=== PATIENT | female | born 1965 | race Caucasian/White ===

== ENCOUNTER 2016-07-18 20:07 | Emergency (ER) | payer BC ==
[2016-07-18 20:18] VITALS: BP 108/81
--- NOTE | 2016-07-18 21:19 | UC ---
Respiratory Complaint HPI - HPI Summary HPI Summary: The patient comes in today for: 1. Sinus pressure and nasal congestion and cough x 2 weeks: Onset: 2 weeks ago. Palliative/provocative: Nothing makes her symptoms better or worse. Quality: Pressure. Region: Bilateral maxillary. Severity: 7/10 Time: Comes and goes. Associated symptoms: Cough: Greening Rhinitis: Clear Chest pain: None. Dyspnea: Present in the last 1-2 days. Wheezing: None. Inhaler: None. Fever: None. * - History of Current Complaint Chief Complaint: UCGeneralIllness Stated Complaint: SINUSES Time Seen by Provider: 07/18/16 21:13 Hx Obtained From: Patient Hx Last Menstrual Period: 03/14/13 ?: No - Allergies/Home Medications Allergies/Adverse Reactions: Allergies Allergy/AdvReac Type Severity Reaction Status Date / Time No Known Allergies Allergy Verified 07/18/16 20:17 Home Medications: Home Medications Phenylephrine W/ Acetaminophen [Tylenol Sinus Congestion 5-325 mg] 1 tab PO ONCE PRN 07/18/16 [History Confirmed 07/18/16] PMH/Surg Hx/FS Hx/Imm Hx Previously Healthy: Yes Endocrine History Of: Reports: Diabetes - She states people have told her she is "prediabetic." Denies: Thyroid Disease, Hyperthyroidism, Hypothyroidism, Dyslipidemia Cardiovascular History Of: Denies: Cardiac Disorders, Hypertension, Pacemaker/ICD, Myocardial Infarction , Congestive Heart Failure, Atrial Fibrillation, Deep Vein Thrombosis, Bleeding Disorders Respiratory History Of: Denies: COPD, Asthma, Bronchitis, Pneumonia, Pulmonary Embolism GI/ History Of: Denies: Gastroesophageal Reflux, Ulcer, Gastrointestinal Bleed, Gall Bladder Disease, Kidney Stones, Diverticulitis, Renal Disease, Urosepsis Neurological History Of: Denies: TIA, CVA, Dementia, Seizures, Migraine Psychological History Of: Denies: Anxiety, Depression, Bipolar Disorder, Schizophrenia, Post Traumatic Stress Disorder Cancer History Of: Denies: Lung Cancer, Colorectal Cancer, Breast Cancer, Prostate Cancer, Cervical Cancer Other History Of: Negative For: HIV, Hepatitis B, Hepatitis C, Anticoagulant Therapy - Surgical History Surgical History: Yes Surgery Procedure, Year, and Place: TUBAL - Family History Known Family History: Positive: Hypertension Negative: Cardiac Disease - Social History Occupation: Employed Full-time Alcohol Use: Weekly Substance Use Type: None Smoking Status (MU): Never Smoked Tobacco Review of Systems Constitutional: Negative Skin: Negative Eyes: Negative ENT: Negative Respiratory: Cough Cardiovascular: Negative Gastrointestinal: Negative Genitourinary: Negative All Other Systems Reviewed And Are Negative: Yes Physical Exam Triage Information Reviewed: Yes Appearance: Well-Appearing, No Pain Distress, Well-Nourished Vital Signs: Initial Vital Signs Temp 99 F 07/18/16 20:12 Pulse 97 07/18/16 20:12 Resp 14 07/18/16 20:12 BP 108/81 07/18/16 20:12 Pulse Ox 98 07/18/16 20:12 Vital Signs Reviewed: Yes Eyes: Positive: Conjunctiva Clear. Negative: Discharge ENT: Positive: Normal ENT inspection, Hearing grossly normal, Other: - Maxillary sinus tenderness to palpation.. Negative: Pharyngeal erythema, Nasal congestion, Nasal drainage, TM bulging, TM dull, TM red, Tonsillar swelling, Tonsillar exudate Dental: Negative: Gross Decay/Caries @, Dental Fracture @ Neck: Positive: Supple, Nontender, No Lymphadenopathy. Negative: Nuchal Rigidity Respiratory: Positive: Lungs clear, No respiratory distress, No accessory muscle use. Negative: Crackles, Wheezing Cardiovascular: Positive: RRR, No Murmur Abdomen Description: Positive: Nontender, No Organomegaly, Soft. Negative: Distended, Guarding Bowel Sounds: Positive: Present Musculoskeletal: Positive: Strength Intact, ROM Intact, No Edema Neurological: Positive: Alert, Muscle Tone Normal Psychological: Positive: Age Appropriate Behavior, Consolable Skin: Negative: rashes, breakdown UC Diagnostic Evaluation - Laboratory O2 Sat by Pulse Oximetry: 98 Respiratory Course/Dx - Differential Dx/Diagnosis Differential Diagnosis/HQI/PQRI: Bronchitis, Laryngitis, Sinusitis Provider Diagnoses: Sinusitis, bilateral Discharge - Discharge Plan Condition: Stable Disposition: HOME Patient Education Materials: Sinusitis (ED) Referrals: Elizabeth Montgomery MD [Primary Care Provider] - 1 Week (Please see your primary care provider in about a week to see how well you are doing. If you get worse, please be seen sooner.)
[2016-07-18] MEDS ORDERED: Amoxicillin/Clavulanate TAB* 875 MG PO ONE (21:24)
== END 2016-07-18 21:33 | disposition home or self-care (01) ==
LOC: UCCORT 20:07
DX: J32.9 Chronic sinusitis, unspecified (principal)
CPT/HCPCS: 99212; A9270-GY; G0463

== ENCOUNTER 2016-11-23 10:01 | Emergency (ER) | payer BC ==
[2016-11-23 10:26] VITALS: BP 125/74
--- NOTE | 2016-11-23 10:51 | UC ---
Upper Extremity HPI - HPI Summary HPI Summary: per help desk consultant "she hit her right elbow against a truck and she thinks she broke her elbow." This happened 2 hrs ago. hard to extend it all nic way. tender at medial extensor elbow. has some tingling into hand - History of Current Complaint Chief Complaint: UCUpperExtremity Stated Complaint: RIGHT ELBOW INJURY Time Seen by Provider: 11/23/16 10:30 Hx Last Menstrual Period: 03/14/13 - Allergies/Home Medications Allergies/Adverse Reactions: Allergies Allergy/AdvReac Type Severity Reaction Status Date / Time No Known Allergies Allergy Verified 11/23/16 10:27 Home Medications: Home Medications NK [No Home Medications Reported] 11/23/16 [History Confirmed 11/23/16] PMH/Surg Hx/FS Hx/Imm Hx Previously Healthy: Yes Other History Of: Negative For: HIV, Hepatitis B, Hepatitis C, Anticoagulant Therapy - Surgical History Surgical History: Yes Surgery Procedure, Year, and Place: TUBAL - Family History Known Family History: Positive: Hypertension Negative: Cardiac Disease - Social History Alcohol Use: Weekly Substance Use Type: None Smoking Status (MU): Never Smoked Tobacco Review of Systems Constitutional: Negative Skin: Negative Eyes: Negative ENT: Negative Respiratory: Negative Cardiovascular: Negative Gastrointestinal: Negative Genitourinary: Negative Motor: Negative Neurovascular: Negative Musculoskeletal: Arthralgia Neurological: Negative Psychological: Negative All Other Systems Reviewed And Are Negative: Yes Physical Exam Triage Information Reviewed: Yes Appearance: Well-Appearing, No Pain Distress, Well-Nourished Vital Signs: Initial Vital Signs Temp 97.4 F 11/23/16 10:20 Pulse 84 11/23/16 10:20 Resp 16 11/23/16 10:20 BP 125/74 11/23/16 10:20 Pulse Ox 98 11/23/16 10:20 Eye Exam: Normal ENT Exam: Normal Neck exam: Normal Respiratory: Positive: Lungs clear, Normal breath sounds, No respiratory distress, No accessory muscle use Cardiovascular Exam: Normal Cardiovascular: Positive: RRR, No Murmur, Pulses Normal, Brisk Capillary Refill Abdominal Exam: Normal Abdomen Description: Positive: Soft Musculoskeletal: Positive: Other: - Rt elbow with tenderness to medial extensor forearm. no bruising, no erythema. able to supinate and pronate. painful to extend. + 2 radial pulse, CR brisk. sensation intact. Neurological Exam: Normal Psychological Exam: Normal Skin Exam: Normal Upper Extremity Course/Dx - Course Course Of Treatment: rt elbow xray - small effusion. no frx. aligned. sling given. adv rpt xray 7-10 days so not to miss a frx - Differential Dx/Diagnosis Differential Diagnosis/HQI/PQRI: Contusion, Fracture (Closed), Nursemaid's Elbow , Strain, Sprain Provider Diagnoses: Rt elbow pain Discharge - Discharge Plan Condition: Stable Disposition: HOME Patient Education Materials: Swollen Joint (ED), Elbow Sprain (ED) Referrals: Elizabeth Montgomery MD [Primary Care Provider] - 3 Days Rasheed Early MD [Medical Doctor] - Additional Instructions: There is no fracture seen on the xray but there is small amount of fluid. It is recommended that this is re-xrayed in 7-10 days as we dsicussed. You can follow up with your PCP or call the orthopedist we have listed. Sling will help keep your arm rested. Ice 20mins on/off as much as possible with towel barrier. Tylenol or ibuprofen will help.
--- NOTE | 2016-11-23 11:12 | RAD ---
INDICATION: Right elbow injury. TECHNIQUE: 4 views of the right elbow were obtained. FINDINGS: The bones are in normal alignment. There is a small joint effusion present. No fracture is seen. IMPRESSION: JOINT EFFUSION, NO FRACTURE IS SEEN. RECOMMEND A FOLLOW-UP X-RAY STUDY OF THE ELBOW IN 7-10 DAYS TO EXCLUDE A RADIOGRAPHICALLY OCCULT FRACTURE.
== END 2016-11-23 11:43 | disposition home or self-care (01) ==
LOC: UCCORT 10:01
DX: M25.521 Pain in right elbow (principal); W22.8XXA Striking against or struck by other objects, initial encounter; Y93.9 Activity, unspecified; Y92.9 Unspecified place or not applicable; Y99.9 Unspecified external cause status; M25.421 Effusion, right elbow
CPT/HCPCS: 99212; G0463

== ENCOUNTER 2018-03-18 08:25 | Day surgery (SDC) | payer BC ==
[~2018-03-18 08:25] MED LIST: Acetaminophen TAB* 325 MG PO PRN; Buffered Lidocaine 0.9% SYRIN* 5 ML/SYR SYRINGE INTRADERM ONE; Bupivacaine 0.25% SDV* 30 ML ONE; Naloxone* 0.4 MG/ML 1 ML VIAL IV PRN; Ondansetron INJ* 2 MG/ML VIAL IV PRN; PROCHLORPERAZINE INJ 5 MG/ML 2 ML VIAL IV PRN; fentaNYL* 50 MCG/ML 2 ML VIAL (100 MCG VIAL) IV PRN
[2018-03-18] MEDS ORDERED: fentaNYL* 50 MCG/ML 2 ML VIAL (100 MCG VIAL) ONE (08:58)
[2018-03-18] MEDS ORDERED: Midazolam* 1 MG/ML 2 ML VIAL (2 MG) ONE (08:58)
[2018-03-18] MEDS ORDERED: ceFAZolin 2 GM PREMIX in ORs 2 GM/50 ML BAG IVPB ONE (08:58)
[2018-03-18] MEDS ORDERED: Lidocaine 2% PF * 5 ML VIAL ONE (10:21)
[2018-03-18] MEDS ORDERED: Propofol* 10 MG/ML 20 ML BTL IV PUSH ONE (10:21)
[2018-03-18] MEDS ORDERED: Ketorolac INJ* 30 MG/ML 1 ML VIAL ONE (10:21)
[2018-03-18 11:18] VITALS: BP 111/71
--- NOTE | 2018-03-18 21:05 | OP ---
DATE OF OPERATION: 03/18/18 - [facility] DATE OF : 69 SURGEON: Arnold Eduardo MD DIRECTOR OF TEENAGE ACTIVITIES: EDDI King ANESTHESIOLOGIST: Dr. Santana. ANESTHESIA: Local MAC. PRE-OP DIAGNOSES: 1. Left volar wrist mass. 2. Left carpal tunnel syndrome. POST-OP DIAGNOSES: 1. Left volar wrist mass. 2. Left carpal tunnel syndrome. OPERATIVE PROCEDURE: 1. Left open carpal tunnel release. 2. Excision of left volar wrist ganglion cyst. INDICATIONS: Keely has a mass right over the volar aspect of her wrist; it has been enlarging and waxes and wanes in size. She gets a lot of carpal tunnel symptoms with it. It is not surprising that the mass is directly overlying the median nerve. I talked to her about the risks and benefits of surgery and she wanted to proceed. ESTIMATED BLOOD LOSS: 2 mL. COMPLICATIONS: None. FINDINGS: See above and below. DESCRIPTION OF PROCEDURE: Keely was seen in the preoperative holding area. The correct site, side, and procedure were identified. We came back to the operating room where the arm was prepped and draped in the usual fashion. I performed a field block with 0.25% Marcaine. Again, the arm was prepped and draped in the usual fashion and a time-out was performed. The arm was exsanguinated with the Esmarch and the tourniquet was inflated to 250 mmHg. I made an incision involving her proximal palm crease longitudinally over the carpal tunnel. This was brought back directly over the mass and then across the wrist in a Rodrigo type fashion. Dissection was carried down and full -thickness flaps were raised right off the mass. It became very obvious that this was a ganglion. We were just seeing the tip of the ganglion, but there was a much larger ganglion deeper to this. I went ahead and first performed the carpal tunnel release by releasing the transverse carpal ligament just off the radial aspect of the hook of the hamate. This was completed distally and then proximally, this was brought across the wrist flexion crease to release the remainder of the transverse carpal ligament and distal antebrachial fascia. With the carpal tunnel release done, I went ahead and turned my attention to the cyst. I did it very carefully and went around the margins of the cyst with the tenotomy scissors and freed up the soft tissue about the cyst. This was taken down, it was penetrating the transverse carpal ligament and looked like it was headed back right towards the CMC joint. The mass was very delicately traced back to the CMC joint where it was amputated and the stock of the cyst was cauterized with the Bovie cautery. Great care was taken not to cauterize anywhere near the median nerve. Great care was taken to try to ensure the preservation of the motor branch in the median nerve. The cyst came out completely cleanly and without injury to any of these surrounding structures. Once I had the cyst excised and everything was looking good, I irrigated out the wound. Skin was closed with 4-0 nylon suture. Wound was dressed and a cock -up wrist splint was applied. Tourniquet was deflated and she was taken to the recovery room in stable condition. [id number] #: [id number] MTDD
== END 2018-03-18 11:20 | disposition home or self-care (01) ==
LOC: OREAST 08:25
PROVIDERS: ATTEND Orthopaedic Surgery Hand Surgery
DX: G56.02 Carpal tunnel syndrome, left upper limb (principal); M67.432 Ganglion, left wrist; R73.03 Prediabetes; I10 Essential (primary) hypertension
CPT/HCPCS: 88304; J0690; J1885; J2250; J2704; J3010